=== PATIENT | male | born 2000 | race Caucasian/White ===

== ENCOUNTER 2019-01-08 22:01 | Emergency (ER) | payer OTHER ==
[2019-01-08] MEDS ORDERED: ONDANSETRON 4 MG/2 ML VIAL ONE (22:27)
[2019-01-08] MEDS ORDERED: ONDANSETRON 4 MG/2 ML VIAL IVP ONE (22:28)
[2019-01-08] MEDS ORDERED: NS 1,000 ML IV ONE ×2 (22:28→23:07)
--- NOTE | 2019-01-08 22:36 | EDPHY ---
H & P Stated Complaint: V/D, LOSS APPETITE X 2 DAYS Time Seen by Provider: 01/08/19 22:09 HPI/ROS: HPI The patient presents with nausea, vomiting, diarrhea which has been present for the last 4 days. Symptoms started with nausea and vomiting, patient developed diarrhea the same day. He is having about 2-3 episodes of nonbloody nonbilious emesis today. This is associated with similar number of episodes of watery stool. He denies any abdominal pain but does say his entire body feels sore. He had a fever on the 1st day of illness 4 days ago, however does not have 1 now. He does not have any runny nose, sore throat, cough. He denies any sick contacts.. REVIEW OF SYSTEMS 10 systems were reviewed and negative with the exception of the elements mentioned in the history of present illness. 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 mother who is visiting from [place] PHYSICAL General Appearance: Alert, no distress Eyes: Pupils equal and round no pallor or injection ENT, Mouth: Mucous membranes dry Respiratory: There are no retractions, lungs are clear to auscultation Cardiovascular: Tachycardic rate and regular rhythm Gastrointestinal: Abdomen is soft and non-tender, no masses, bowel sounds normal Neurological: A&O, moves all extremities Skin: Warm and dry, no rashes Musculoskeletal: Neck is supple non tender Extremities: symmetrical, full range of motion Psychiatric: Patient is oriented X 3, there is no agitation Source: Patient, Family Exam Limitations: No limitations - Personal History Current Tetanus Diphtheria and Acellular Pertussis (TDAP): Yes - Medical/Surgical History Hx Asthma: No Hx Chronic Respiratory Disease: No Hx Diabetes: No Hx Cardiac Disease: No Hx Renal Disease: No Hx Cirrhosis: No Hx Alcoholism: No Hx HIV/AIDS: No Hx Splenectomy or Spleen Trauma: No Other PMH: FOOT SX - Social History Smoking Status: Never smoked Constitutional: Initial Vital Signs Temperature (C) 36.4 C 01/08/19 22:04 Heart Rate 106 H 01/08/19 22:04 Respiratory Rate 20 01/08/19 22:04 Blood Pressure 121/83 H 01/08/19 22:04 O2 Sat (%) 98 01/08/19 22:04 O2 Delivery Mode Room Air Allergies/Adverse Reactions: No Known Allergies Allergy (Unverified 01/08/19 22:04) Home Medications: Medication Instructions Recorded Ondansetron Odt [Zofran Odt 4 mg 4 mg PO Q4 PRN #10 tab 01/08/19 (*)] Medical Decision Making Differential Diagnosis: 18-year-old male healthy college student presents with 4 days of nausea, vomiting, diarrhea, initially with fever. Here, he is generally well-appearing , slightly tachycardic, mucous membranes dry, abdominal exam benign. Differential diagnosis includes influenza, viral gastroenteritis, toxin mediated enterocolitis, less likely appendicitis or diverticulitis, less likely pancreatitis. Plan for IV fluids, Zofran, basic labs including influenza swab. Here, the patient felt much better after receiving the above treatment. He was able to tolerate fluids without any difficulty. His repeat abdominal exam was continually benign. Labs did demonstrate anion gap, likely related to dehydration. Potassium was slightly low as well and this was repleted. Patient felt well enough to go home and was discharged with his mother. - Data Points Laboratory Results: Laboratory Results 01/08/19 22:19 01/08/19 22:19 01/08/19 01/08/19 01/08/19 22:30 22:19 22:19 WBC 5.89 10^3/uL 10^3/uL (3.80-9.50) RBC 5.34 10^6/uL 10^6/uL (4.40-6.38) Hgb 16.6 g/dL g/dL (13.7-17.5) Hct 43.4 % % (40.0-51.0) MCV 81.3 fL L fL (81.5-99.8) MCH 31.1 pg pg (27.9-34.1) MCHC 38.2 g/dL H g/dL (32.4-36.7) RDW 12.5 % % (11.5-15.2) Plt Count 181 10^3/uL 10^3/uL (150-400) MPV 11.4 fL fL (8.7-11.7) Neut % (Auto) 63.0 % % (39.3-74.2) Lymph % (Auto) 27.2 % % (15.0-45.0) [place] % (Auto) 9.3 % % (4.5-13.0) Eos % (Auto) 0.0 % L % (0.6-7.6) Baso % (Auto) 0.2 % L % (0.3-1.7) Nucleat RBC Rel Count 0.0 % % (0.0-0.2) Absolute Neuts (auto) 3.71 10^3/uL 10^3/uL (1.70-6.50) Absolute Lymphs (auto) 1.60 10^3/uL 10^3/uL (1.00-3.00) Absolute Monos (auto) 0.55 10^3/uL 10^3/uL (0.30-0.80) Absolute Eos (auto) 0.00 10^3/uL L 10^3/uL (0.03-0.40) Absolute Basos (auto) 0.01 10^3/uL L 10^3/uL (0.02-0.10) Absolute Nucleated RBC 0.00 10^3/uL 10^3/uL (0-0.01) Immature Gran % 0.3 % % (0.0-1.1) Immature Gran # 0.02 10^3/uL 10^3/uL (0.00-0.10) Platelet Estimate ADEQUATE (ADEQ) Microcytic Cells 1+ H Keratocytes 1+ H Sodium 138 mEq/L mEq/L (135-145) Potassium 3.3 mEq/L L mEq/L (3.5-5.2) Chloride 99 mEq/L mEq/L (97-110) Carbon Dioxide 20 mEq/l L mEq/l (22-31) Anion Gap 19 mEq/L H mEq/L (6-14) BUN 11 mg/dL mg/dL (7-23) Creatinine 0.7 mg/dL mg/dL (0.7-1.3) Estimated GFR > 60 Glucose 100 mg/dL mg/dL (70-100) Calcium 9.8 mg/dL mg/dL (8.5-10.4) Total Bilirubin 1.2 mg/dL mg/dL (0.1-1.4) Conjugated Bilirubin 0.3 mg/dL mg/dL (0.0-0.5) Unconjugated Bilirubin 0.9 mg/dL mg/dL (0.0-1.1) AST 31 IU/L IU/L (17-59) ALT 21 IU/L IU/L (21-72) Alkaline Phosphatase 63 IU/L IU/L (38-126) Total Protein 8.2 g/dL g/dL (6.3-8.2) Albumin 5.1 g/dL H g/dL (3.5-5.0) Lipase 107 IU/L IU/L (23-300) Nasal Influenza A PCR NEGATIVE FOR FLU A (NEGATIVE) Nasal Influenza B PCR NEGATIVE FOR FLU B (NEGATIVE) Medications Given: Discontinued Medications Sodium Chloride (Ns) 1,000 mls @ 0 mls/hr IV EDNOW ONE; Wide Open PRN Reason: Protocol Stop: 01/08/19 22:29 Last Admin: 01/08/19 22:31 Dose: 1,000 mls Sodium Chloride (Ns) 1,000 mls @ 0 mls/hr IV EDNOW ONE; Wide Open PRN Reason: Protocol Stop: 01/08/19 23:08 Last Admin: 01/08/19 23:09 Dose: 1,000 mls Ibuprofen (Motrin) 600 mg PO EDNOW ONE Stop: 01/09/19 00:21 Last Admin: 01/09/19 00:22 Dose: 600 mg Ondansetron HCl (Zofran) 4 mg IVP EDNOW ONE Stop: 01/08/19 22:29 Last Admin: 01/08/19 22:29 Dose: 4 mg Ondansetron HCl (Zofran Odt 4 Mg Prepack#2) 1 btl TAKEHOME EDNOW ONE Stop: 01/09/19 00:00 Last Admin: 01/09/19 00:14 Dose: 1 btl Potassium Chloride (Klor Packets) 20 meq PO EDNOW ONE Stop: 01/08/19 23:59 Last Admin: 01/09/19 00:14 Dose: 20 meq Departure - Departure Disposition: Home, Routine, Self-Care Clinical Impression: Nausea, vomiting, and diarrhea Condition: Good Instructions: Ondansetron (By mouth), Dehydration (ED), Acute Nausea and Vomiting (ED) Additional Instructions: Please make sure to drink plenty of fluids. You should return to the emergency department if your worse in any way. Referrals: [facility],. [Clinic] - As per Instructions Prescriptions: Ondansetron Odt [Zofran Odt 4 mg (*)] 4 mg PO Q4 PRN #10 tab PRN Reason: Nausea/Vomiting, Can'T Take Po
[2019-01-08 23:31] LABS: PLATELET COUNT 181 10^3/uL (150-400)
[2019-01-08] MEDS ORDERED: POTASSIUM CL 20 MEQ PKT PO ONE (23:58)
[2019-01-08] MEDS ORDERED: ONDANSETRON 4MG PREPACK#2 BTL TAKEHOME ONE (23:59)
[2019-01-09] MEDS ORDERED: IBUPROFEN 200 MG TAB PO ONE (00:20)
[2019-01-09] MEDS ORDERED: IBUPROFEN 600 MG TAB PO ONE (00:21)
[2019-01-09 00:26] VITALS: BP 112/64
== END 2019-01-09 00:24 | disposition home or self-care (01) ==
DX: R11.2 Nausea with vomiting, unspecified (principal); R19.7 Diarrhea, unspecified; E86.9 Volume depletion, unspecified
CPT/HCPCS: 96374; J2405